=== PATIENT | female | born 1935 | race African-American/Black ===

== ENCOUNTER 2019-09-02 21:12 | Inpatient (IN) | payer MEDICARE, BC ==
[~2019-09-02] VITALS: Ht 162.6 cm; Wt 74.4 kg
[~2019-09-02 21:12] MED LIST: GABA-531 PO; MELO-105 PO; OMEP20TA2 PO; SUCR1TAB PO; TRAM50TA3 PO
[2019-09-02] MEDS ORDERED: SODIUM CHLORIDE 0.9% 1,000 ML IV ONE (23:16)
[2019-09-02] MEDS ORDERED: LORAZEPAM 2MG/ML CPJ IV STA (23:16)
[2019-09-02 23:45] LABS: HEMATOCRIT. 38.1 % (36.0-48.0); HEMOGLOBIN. 12.8 g/dL (12.0-16.0); MEAN CORPUSCULAR VOLUME 95.5 fL (81.0-99.0); MEAN PLATELET VOLUME 8.1 fl (7.4-10.4); PLATELET 97 x1000/uL (130-400); RED BLOOD CELL COUNT 3.99 mill/uL (4.2-5.4); RED CELL DISTRIBUTION WIDTH 14.9 % (11.6-14.6)
[2019-09-02 23:47] LABS: CHLORIDE 109 mEq/L (98-107)
[2019-09-03 00:35] LABS: CLARITY URINE CLEAR (CLEAR); COLOR URINE DARK YELLOW (YELLOW); KETONES URINE TRACE (NEGATIVE); LEUKOCYTE ESTERASE URINE NEGATIVE (NEGATIVE); NITRITE URINE NEGATIVE (NEGATIVE); OCCULT BLOOD URINE NEGATIVE (NEGATIVE); PROTEIN URINE TRACE (NEGATIVE); SPECIFIC GRAVITY URINE 1.021 (1.005-1.030); UROBILINOGEN URINE >8.0 E.U./dL (0.2-1.0)
[2019-09-03 01:04] LABS: PLATELET ESTIMATE DECREASED
[2019-09-03] MEDS ORDERED: FOLI-43 MT (05:46)
[2019-09-03] MEDS ORDERED: MIRT15TA6 MT (05:46)
[2019-09-03] MEDS ORDERED: METH2.5T MT (05:46)
[2019-09-03] MEDS ORDERED: AMLO5TAB88 MT (05:46)
[2019-09-03 05:52] VITALS: BP 118/58
[2019-09-03 05:53] VITALS: BP 118/58
[2019-09-03 08:00] VITALS: BP 133/82
[2019-09-03 12:00] VITALS: BP 99/60
[2019-09-03] MEDS ORDERED: MAGNESIUM/ALUMINUM HYDROXIDE/SIMETHICONE 30ML UDC PO PRN (13:30)
[2019-09-03] MEDS ORDERED: ONDANSETRON HCL 4MG/2ML INJ IV PRN (13:30)
[2019-09-03] MEDS ORDERED: ACETAMINOPHEN 325MG TABLET PO PRN (13:30)
[2019-09-03] MEDS ORDERED: CLONIDINE 0.1MG TABLET PO PRN (13:30)
[2019-09-03] MEDS ORDERED: HYDROCODONE/ACETAMINOPHEN 5/325MG TABLET PO PRN (13:30)
[2019-09-03] MEDS: OMEPRAZOLE 20MG CAPSULE EXTENDED RELEASE PO SCH (15:34)
[2019-09-03 16:00] VITALS: BP 117/60
[2019-09-03 20:00] VITALS: BP 124/59
[2019-09-04] VITALS: BP 110/60
[2019-09-04 04:00] VITALS: BP 129/76
[2019-09-04 07:12] LABS: BASOPHILS % 0.2 % (0.0-2.0); EOSINOPHILS % 0.9 % (0.0-5.0); HEMATOCRIT. 35.5 % (36.0-48.0); HEMOGLOBIN. 11.9 g/dL (12.0-16.0); LYMPHOCYTES % 19.7 % (20.0-50.0); MEAN CORPUSCULAR HEMOGLOBIN 31.9 pg (28.0-32.0); MEAN CORPUSCULAR VOLUME 95.4 fL (81.0-99.0); MEAN PLATELET VOLUME 8.1 fl (7.4-10.4); MONOCYTES % 11.3 % (2.0-8.0); NEUTROPHILS % 67.9 % (40.0-76.0); PLATELET 99 x1000/uL (130-400); RED BLOOD CELL COUNT 3.72 mill/uL (4.2-5.4); RED CELL DISTRIBUTION WIDTH 14.8 % (11.6-14.6)
[2019-09-04 07:50] LABS: CHLORIDE 109 mEq/L (98-107)
[2019-09-04 08:00] VITALS: BP 131/66
[2019-09-04 08:00] LABS: LDL CHOLESTEROL 68 mg/dL (5-100)
[2019-09-04 08:06] LABS: HDL CHOLESTEROL 68 mg/dL (40-59)
[2019-09-04] MEDS: QUETIAPINE FUMARATE 25MG TABLET PO SCH ×2 (09:41→20:51)
[2019-09-04] MEDS: OMEPRAZOLE 20MG CAPSULE EXTENDED RELEASE PO SCH (09:41)
[2019-09-04] MEDS ORDERED: POTASSIUM CHLORIDE 20MEQ TABLET SR PO NR (11:00)
[2019-09-04 12:00] VITALS: BP 116/66
[2019-09-04 13:56] LABS: T4 FREE 0.96 ng/dL (0.76-1.46)
[2019-09-04 14:06] LABS: *AMPHETAMINES SCREEN URINE NEGATIVE (NEGATIVE); *BARBITURATES SCREEN URINE NEGATIVE (NEGATIVE); *BENZODIAZEPINES SCREEN URINE NEGATIVE (NEGATIVE); FOLIC ACID (FOLATE) SERUM 16.6 ng/mL (>5.38)
[2019-09-04 14:07] LABS: *COCAINE SCREEN URINE NEGATIVE (NEGATIVE)
[2019-09-04 14:08] LABS: METHADONE URINE SCREEN NEGATIVE (NEGATIVE); OPIATES URINE SCREEN NEGATIVE (NEGATIVE)
[2019-09-04 14:09] LABS: CANNABINOID URINE SCREEN NEGATIVE (NEGATIVE); PHENCYCLIDINE URINE SCREEN NEGATIVE (NEGATIVE)
[2019-09-04] MEDS: DILTIAZEM HCL 60MG TABLET PO SCH (16:14)
[2019-09-04 20:00] VITALS: BP 130/59
[2019-09-04] MEDS: AMIODARONE HCL 200 MG TABLET PO SCH (20:50)
[2019-09-05] VITALS: BP 167/70
[2019-09-05] MEDS: DILTIAZEM HCL 60MG TABLET PO SCH ×3 (00:04→17:00)
[2019-09-05 04:00] VITALS: BP 154/74
[2019-09-05 05:38] LABS: BASOPHILS % 0.3 % (0.0-2.0); HEMATOCRIT. 36.4 % (36.0-48.0); HEMOGLOBIN. 12.1 g/dL (12.0-16.0); LYMPHOCYTES % 22.8 % (20.0-50.0); MEAN CORPUSCULAR HEMOGLOBIN 31.6 pg (28.0-32.0); MEAN PLATELET VOLUME 8.4 fl (7.4-10.4); MONOCYTES % 12.7 % (2.0-8.0); NEUTROPHILS % 63.2 % (40.0-76.0); PLATELET 105 x1000/uL (130-400); RED BLOOD CELL COUNT 3.84 mill/uL (4.2-5.4); RED CELL DISTRIBUTION WIDTH 15.2 % (11.6-14.6)
[2019-09-05 06:15] LABS: CHLORIDE 111 mEq/L (98-107)
[2019-09-05 08:00] VITALS: BP 133/67
[2019-09-05] MEDS: OMEPRAZOLE 20MG CAPSULE EXTENDED RELEASE PO SCH (08:39)
[2019-09-05] MEDS: DOCUSATE SODIUM 100MG CAPSULE PO PRN (08:40)
[2019-09-05] MEDS: ASPIRIN 81MG EC TABLET PO SCH (08:41)
[2019-09-05] MEDS: AMIODARONE HCL 200 MG TABLET PO SCH ×2 (08:42→20:58)
[2019-09-05] MEDS: QUETIAPINE FUMARATE 25MG TABLET PO SCH ×2 (08:43→20:58)
[2019-09-05 12:00] VITALS: BP 138/70
[2019-09-05 16:00] VITALS: BP 135/62
[2019-09-05 20:00] VITALS: BP 132/68
[2019-09-06] VITALS: BP_SYST 105; BP_SYST 113; BP_DIAS 58; BP_DIAS 67
[2019-09-06 04:00] VITALS: BP 133/67
[2019-09-06 07:17] LABS: BASOPHILS % 0.4 % (0.0-2.0); HEMATOCRIT. 35.7 % (36.0-48.0); HEMOGLOBIN. 11.8 g/dL (12.0-16.0); LYMPHOCYTES % 21.6 % (20.0-50.0); MEAN CORPUSCULAR HEMOGLOBIN 31.8 pg (28.0-32.0); MEAN PLATELET VOLUME 8.4 fl (7.4-10.4); MONOCYTES % 11.8 % (2.0-8.0); NEUTROPHILS % 65.2 % (40.0-76.0); PLATELET 111 x1000/uL (130-400); RED BLOOD CELL COUNT 3.72 mill/uL (4.2-5.4); RED CELL DISTRIBUTION WIDTH 15.1 % (11.6-14.6)
[2019-09-06 07:19] LABS: CHLORIDE 111 mEq/L (98-107)
[2019-09-06 08:00] VITALS: BP 131/74
[2019-09-06] MEDS: AMIODARONE HCL 200 MG TABLET PO SCH ×2 (09:03→21:33)
[2019-09-06] MEDS: QUETIAPINE FUMARATE 25MG TABLET PO SCH ×2 (09:04→21:32)
[2019-09-06] MEDS: DOCUSATE SODIUM 100MG CAPSULE PO PRN (09:04)
[2019-09-06] MEDS: OMEPRAZOLE 20MG CAPSULE EXTENDED RELEASE PO SCH (09:04)
[2019-09-06] MEDS: DILTIAZEM HCL 60MG TABLET PO SCH ×3 (09:04→17:54)
[2019-09-06] MEDS: ASPIRIN 81MG EC TABLET PO SCH (09:04)
[2019-09-06 12:00] VITALS: BP 110/68
[2019-09-06] MEDS ORDERED: LACTULOSE 20G/30ML UDC PO SCH (14:00)
[2019-09-06 17:48] VITALS: BP 121/64
[2019-09-06 20:00] VITALS: BP 139/70
== END 2019-09-06 22:10 | DRG 92 ==
LOC: ER 21:12 → EDBEDREQTM 09-03 01:41 → EDBEDREQ 09-03 01:41 → 7WST 09-03 02:05 → ENRESERV 09-03 03:49 → 7WST 09-04 14:06
PROVIDERS: ADMIT Specialist; ATTEND Specialist
DX: G92 Toxic encephalopathy (principal); D61.818 Other pancytopenia; K76.6 Portal hypertension; N39.0 Urinary tract infection, site not specified; E87.6 Hypokalemia; F03.90 Unspecified dementia, unspecified severity, without behavioral disturbance, psychotic disturbance, mood disturbance, and anxiety; I10 Essential (primary) hypertension; K21.9 Gastro-esophageal reflux disease without esophagitis; K74.60 Unspecified cirrhosis of liver; E78.00 Pure hypercholesterolemia, unspecified; R32 Unspecified urinary incontinence; G62.9 Polyneuropathy, unspecified; I48.0 Paroxysmal atrial fibrillation; Z85.028 Personal history of other malignant neoplasm of stomach; Z90.3 Acquired absence of stomach [part of]; Z90.49 Acquired absence of other specified parts of digestive tract; Z79.899 Other long term (current) drug therapy; Z90.710 Acquired absence of both cervix and uterus
CPT/HCPCS: 36415; 70551; 71045; 80048; 80061; 80076; 80305; 80320; 81003; 82140; 82607; 82746; 83036; 83735; 83880; 84100; 84439; 84443; 84481; 84484; 87077; 87186; 93005; 93306; 93970; 96361; 96374; 97162; 97166; 99285; A6261; J2060; J7030; G0480